=== PATIENT | male | born 1995 | race Caucasian/White ===

== ENCOUNTER 2025-06-29 07:43 | Outpatient (CLI) | payer OTHER ==
[2025-06-29 09:17] LABS: BASO % 0.7 % (0.1-1.2); EOS # 0.05 (0.04-0.54); EOS % 0.9 % (0.7-7.0); LYMPH # 1.30 (1.18-3.74); LYMPH % 24.3 % (19.3-53.1); MEAN PLATELET VOLUME 11.90 fl (9.4-12.4); MONO # 0.34 (0.24-0.82); MONO % 6.4 % (4.7-12.5); NEUT # 3.60 (1.56-6.13); NEUT % 67.5 % (34.0-71.1); RED CELL DISTRIBUTION WIDTH 12.7 % (11.6-14.4)
[2025-06-29 10:14] LABS: URINE APPEARANCE Clear; URINE BILIRRUBIN Negative (NEGATIVE); URINE BLOOD Negative; URINE COLOR Yellow; URINE GLUCOSE Negative (NEGATIVE); URINE KETONE Negative (NEGATIVE); URINE LEUKOCYTE Negative; URINE NITRATE Negative; URINE PROTEIN Negative (NEGATIVE); URINE UROBILINOGEN 0.2 E.U./dl
[2025-06-29 10:16] LABS: URINE BACTERIA 7.1 uL (0.0-1933); URINE RBC 3.2 uL (0.0-20.8); URINE WBC 1.8 uL (0.0-23.2)
[2025-06-29 10:18] LABS: ALT/SGPT 52.0 U/L (12-78); AST/SGOT 19.0 U/L (15-37); BILIRUBIN TOTAL 0.64 mg/dL (0.3-1.2); BUN CREA RATIO 17.0 (7.0-25.0); CHOL HDL RATIO 3.8 (0-5.0); CREATININE SERUM 0.94 mg/dL (0.70-1.30); GFR 94.23; GLOBULINA 3.4 G/DL (2.4-3.5); GLUCOSE FASTING 86.0 mg/dL (65-100); HDL 48.0 mg/dl (40-60); LDL 120.0 mg/dl (0-130); OSMOLALITY SERUM 285.0 MOSM/KG (275-295); T3 UPTAKE 32.0 % (33-40); T4 TOTAL 7.82 UG/DL (4.5-12.1); TSH 1.61 uIU/mL (0.358-3.74); VLDL 13.0 (0-39)
[2025-06-29 10:23] LABS: URINE CAST 0.00 uL (0.0-1.40); URINE EPITHELIAL CELLS 0.4 uL (0.0-38.8)
== END 2025-06-29 07:50 | disposition home or self-care (01) ==
LOC: LAB 07:43
PROVIDERS: ATTEND Obstetrics & Gynecology Reproductive Endocrinology
DX: Z00.00 Encounter for general adult medical examination without abnormal findings (principal)